=== PATIENT | female | born 1945 | race Caucasian/White ===

== ENCOUNTER → 2018-01-29 | Outpatient (CLI) | payer OTHER ==
[~2018-01-29] MED LIST: BENICAR40 MG; COZAAR 25 MG TA25 M2 PO; COZAAR 50 MG TA50 M2 PO; DITROPAN; ELIQUIS2.5 MG PO; ELIQUIS5 MG PO; ENOXAPARIN30 MG/0.1 SUBQ; IBUPROFEN 200200 M1; IBUPROFEN 200200 M1 PO; LEVSIN0.125 MG PO; LIORESAL 10 MG10 MG PO; LOPRESSOR 100 MG PO; LOPRESSOR100 M1 PO; LOPRESSOR100 MG; LOPRESSOR25 PO; LORTAB 5 MG/5001 TA1; LOTENSIN40 MG PO; NEURONTIN 400M400 M2 PO; NEURONTIN600 MG PO; NORCO 5-325 TA1 EACH PO; ONDANSETRON HCL4 M2 PO; OXYCODONE HCL 55 MG PO; PHENAZOPYRIDIN200 M2 PO; PROTONIX40 M2 PO; TRAMADOL 50 MG50 MG PO; TYLENOL325 MG PO; ZANAFLEX4 MG PO
== END ==
LOC: M.RAD 09:14
DX: Z12.31 Encounter for screening mammogram for malignant neoplasm of breast (principal)

== ENCOUNTER 2018-03-02 07:11 | Inpatient (IN) | payer OTHER ==
[2018-02-26 09:15] LABS: ABSOLUTE BASOPHILS 0.1 thou/uL (0.0-0.2); ABSOLUTE EOSINOPHILS 0.2 thou/uL (0.0-0.7); ABSOLUTE LYMPHOCYTES 2.7 thou/uL (0.8-5.3); ABSOLUTE MONOCYTES 0.6 thou/uL (0.0-1.2); ABSOLUTE NEUTROPHILS 3.7 thou/uL (1.6-8.1); BASOPHILS 1.5 %; EOSINOPHILS 2.4 %; HEMATOCRIT 43.8 % (37.0-47.0); HEMOGLOBIN 14.9 gm/dL (12.0-15.0); LYMPHOCYTES 37.6 %; MCH 29.8 pg (26.0-34.0); MCV 87.6 fL (80.0-100.0); MONOCYTES 7.7 %; MPV 8.5 fl. (7.2-11.1); NUCLEATED RBCS 0 /100WBC; PLATELET COUNT* 327 thou/uL (150-400); POLYS 50.8 %; RDW-CV 13.8 % (10.5-14.5); WBC 7.2 thou/uL (4.0-11.0)
[2018-02-26 09:23] LABS: CREATININE 0.8 mg/dL (0.6-1.3); POTASSIUM 3.3 mmol/L (3.5-5.1)
[2018-02-26 09:28] LABS: ALBUMIN 3.8 g/dL (3.4-5.0); TOTAL BILIRUBIN 0.4 mg/dL (<0.1-1.0); TOTAL PROTEIN 8.2 g/dL (6.4-8.2)
[2018-02-26 09:48] LABS: APTT 26.6 Seconds (25.0-31.3); PROTIME 9.9 Seconds (9.20-11.50)
[2018-02-26 10:19] LABS: ESR (SEDRATE) 20 mm/hr (0-30)
--- NOTE | 2018-02-26 16:37 | EKG ---
[place] [address] ELECTROCARDIOGRAM REPORT Name: BOZENA DORSEY Room: [facility]#: [id number] Admission: Attend Phys: Celia Ahmadi Discharge: Date of : 47 Report #: [id number] THIS REPORT FOR: //name// [facility] Test Date: 2018-02-26 Test Time: 09:40:28 Pat Name: BOZENA OSUNAW Department: Room: Gender: F Mine Promotor: : 1945 Requested By: Wali Coombs Order Number: [id number] Obdulia MD: Barry Bailey Measurements Intervals [place] Rate: 82 P: 41 SD: 152 QRS: 64 QRSD: 92 T: 12 QT: 372 QTc: 435 Interpretive Statements Sinus rhythm Low voltage, precordial leads Compared to ECG 05/09/2016 09:20:54 Ventricular premature complex(es) no longer present Electronically Signed On 02-26-2018 16:37:19 CDT by Barry Bailey [email or web address] <ELECTRONICALLY SIGNED> By: Barry Bailey MD, [facility] 02/26/18 1637 0940 9 Barry Bailey MD, FACC /EPI
[~2018-03-02] VITALS: Ht 170.2 cm; Wt 87.5 kg
[~2018-03-02 07:11] MED LIST changes: -COZAAR 25 MG TA25 M2 PO; -ENOXAPARIN30 MG/0.1 SUBQ; -LEVSIN0.125 MG PO; -LOPRESSOR25 PO; -NEURONTIN600 MG PO; -NORCO 5-325 TA1 EACH PO; -ONDANSETRON HCL4 M2 PO; -PHENAZOPYRIDIN200 M2 PO
[2018-03-02 08:09] VITALS: BP 134/75
--- NOTE | 2018-03-02 15:38 | OP ---
[address] [address] OPERATIVE REPORT Name: BOZENA DORSEY Room: [address] IN .R.#: [id number] Admission: 03/02/18 Attend Phys: Celia Ahmadi Discharge: Date of : 47 Report #: [id number] THIS REPORT FOR: //name// CC: Wali Mayo DICTATED BY: Shon Cannon DO DATE OF SERVICE: 03/02/2018 PREOPERATIVE DIAGNOSIS: Left knee degenerative joint disease, valgus deformity. POSTOPERATIVE DIAGNOSIS: Left knee degenerative joint disease, valgus deformity. PROCEDURE: Left total knee arthroplasty. SURGEON: Wali Coombs DO. [employer]: Shon Cannon DO and Jeffrey Clark DO. ORTHOPEDIC IMPLANTS: Hernandez [employer] Nephew Journey II posterior stabilized total knee arthroplasty. 1. Size 4 posterior stabilized femoral component. 2. A size 4 tibial baseplate. 3. A size 11 posterior stabilized polyethylene liner. 4. A size 29 oval patella. PREOPERATIVE ANTIBIOTICS: 1 gram of vancomycin. ESTIMATED BLOOD LOSS: 150 mL. ANESTHESIA: General endotracheal tube. COMPLICATIONS: None. SPECIMENS: None. DRAINS: None. CONDITION: The patient is stable to PACU. INDICATIONS FOR PROCEDURE: This 72-year-old female has been dealing with left knee pain and discomfort for quite some time. She previously underwent right total knee arthroplasty, which she had great results with and elected to proceed [place] [address] [address] OPERATIVE REPORT Name: BOZENA DORSEY Room: [place] [address] ADM IN M.R.#: [id number] Admission: 03/02/18 Attend Phys: Celia Ahmadi Discharge: Date of : 47 Report #: [id number] with left total knee arthroplasty. DESCRIPTION OF PROCEDURE: Once written and verbal consent was obtained, the patient was taken from the preoperative holding area to the operating suite, given the benefit of general anesthesia. Left lower extremity was prepared for surgery with a well-padded tourniquet, was sterilely prepped and draped in sewing machine operator paper bags manner. Timeout was performed to verify the correct operative site, the patient and procedure. Next, a standard midline incision was made over the anterior surface of the knee, carried down to the quadriceps tendon and capsule. A standard medial parapatellar arthrotomy was performed and the patella was everted laterally and an entry reamer was used in the distal femur. Our distal femoral cutting block was set to resect 10 mm off the distal femur. Next, attention was taken to the tibia and an extramedullary tibial guide was used to resect 9 mm off the medial side. After this cut was performed, the knee was taken into extension and the 10-mm spacer block was utilized and found to have good mechanical alignment. Next, attention was taken to the femur and a sizing guide was used to size the distal femur to a size 4. Our captured cutting block was used to make our distal femur and chamfer cuts. Once all bony cuts were removed, a soft tissue resection of meniscus and any other adhesive tissues were removed from the knee. It was thoroughly irrigated. Trial components were set in place, found to have good gap balance as well as alignment of the components. The knee was thoroughly irrigated. Next, utilizing the Wisam size 41 patellar reamer, the patellar surface was reamed down to a nice flat surface, measured to be a size 29. All trial components were removed from the knee. The knee was thoroughly irrigated. Posterior capsule was injected with a local cocktail. The utilized 1 bag of Palacos bone cement, the final components were impacted into place. Cement was allowed to harden. A final polyethylene liner size [address] The knee was thoroughly irrigated. Vancomycin powder was sprinkled onto the knee. The quadriceps tendon and capsule was closed with a combination of #1 Vicryl sutures as well as a barbed PDS suture. Next, the skin was closed with a 2-0 Monocryl in a running Stratafix surgical glue and a Mepilex silver dressing. The patient was awakened, taken to PACU in a stable condition. PQRS: The patient will receive Eliquis for DVT prophylaxis and will also receive vancomycin for 24 hours after surgery. <ELECTRONICALLY SIGNED> By: Wayne Sarabia DO 03/02/18 1538 1034 [id number] Coombs DO /chata
[2018-03-02 16:00] VITALS: BP 136/87
--- NOTE | 2018-03-02 16:54 | NUR ---
PATIENT ARRIVED TO UNIT AT 1520. ALERT AND ORIENTED X4. UP WITH ASSIST X1 WITH WALKER AND GAIT BELT. IV IS PATENT AND INFUSING. PAIN BEING MANAGED WITH PO PAIN MEDICATION ADMINISTERED IN THE PACU. DENIES NAUSEA. CONTINUOUS PULSE OX IN PLACE. DRESSING ON LEFT KNEE IS C/D/I. VSS ON ROOM AIR. PATIENT HAS BEEN ORIENTED TO ROOM. CALL LIGHT IS WITHIN REACH. NURSING WILL CONTINUE TO MONITOR.
--- NOTE | 2018-03-02 17:58 | NUR ---
ALERT AND ORINENTED X4. UP WITH ASSIST X1 WITH WALKER AND GAIT BELT. IV IS PATENT AND INFUSING. PAIN BEING MANAGED WITH PO PAIN MEDICATION GIVEN IN THE PACU. DENIES NAUSEA. TYLER HOSE IN PLACE BILATERALLY. ICE PACK IN PLACE ON LEFT KNEE. DRESSING IS C/D/I. CONTINUOUS PULSE OX IN PLACE. VSS ON ROOM AIR. HOURLY ROUNDS HAVE BEEN MAINTAINED SINCE ARRIVING TO UNIT. CALL LIGHT IS WITHIN REACH. NURSING WILL CONTINUE TO MONITOR.
[2018-03-02 20:00] VITALS: BP 127/95
[2018-03-03 00:14] VITALS: BP 103/58
[2018-03-03 04:20] VITALS: BP 109/59
[2018-03-03 04:28] LABS: HEMATOCRIT 32.9 % (37.0-47.0); HEMOGLOBIN 10.9 gm/dL (12.0-15.0)
--- NOTE | 2018-03-03 06:55 | NUR ---
PATIENT ALERT AND ORIENTED X 4. VITALS STABLE. PLACED ON 2L AT HS. PAIN CONTROLLED WITH PO MEDICATION. UP WITH ASSIST X 1 TO BSC. LEFT KNEE DRESSING REINFORCED. ICEPACK IN PLACE. FLUIDS INFUSING PER ORDER. HOURLY ROUNDS. BED ALARM IN USE. NURSING WILL CONTINUE TO MONITOR.
--- NOTE | 2018-03-03 09:30 | NUR ---
PATIENT CALLED TO NURSES STATION AND ASKED TO GO TO THE BATHROOM. PATIENT HAS BEEN UP TO THE COMMODE MULTIPLE TIMES. NURSE ASKED PATIENT IF SHE WOULD RATHER USE THE BEDSIDE COMMODE OR WALK TO THE BATHROOM. PATIENT CHOSE TO WALK TO THE BATHROOM, WHEN PATIENT WENT TO STAND UP OFF THE TOILET HER LEFT LEG BUCKLED AND EXTERNALLY ROTATED. PATIENT AND NURSE HEARD A POP. NURSE WAS HOLDING ONTO GAIT BELT, AND SAT PATIENT BACK ON TOILET . NURSE HAD TECH SIT WITH PATIENT WHILE A CALL WAS PUT OUT TO A oRTHO RESIDENT, RECEIVED AN ORDER FOR A STAT X-RAY. PHYSICAL THERAPY ASSISTED TO GET PATIENT BACK TO BED WITHOUT WEIGHT BEARING ON THE AFFECTED LEG. X-RAY WAS TAKEN AND THE RESULTS SHOWED A FRACTURED FEMUR. ORTHO DR., PROGRAM COORDINATOR, AND PETROLEUM REFINERY OPERATOR HAVE BEEN NOTIFIED. PATIENT REQUESTED A COPY OF HER X-RAY, CALLED [facility] TO VERIFY HOW TO GET HER THOSE RECORDS. HAD PATIENT FILL OUT AND SIGN A [facility] REQUEST FORM AND GAVE PATIENT A COPY OF THE X-RAY REPORT AND PICTURE OF FRACTURE.
[2018-03-03 16:37] VITALS: BP 124/67
--- NOTE | 2018-03-03 20:15 | NUR ---
ALERT AND ORIENTED X4. BEDREST. NON WEIGHT BEARING STATUS MAINTAINED SINCE RECIEVING ORDER. IV IS PATENT AND SALINE LOCKED. PAIN BEING MANAGED WITH IV AND PO PAIN MEDICATION. NAUSEA BEING MANAGED WITH IV NAUSEA MEDICATION. MEPILEX DRESSING IN PLACE ON LEFT KNEE MODERATELY SATURATED. VSS ON 2L O2. CONTINUOUS PULSE OX IN PLACE THROUGHOUT SHIFT. CALL LIGHT IS WITHIN REACH. NURSING WILL CONTINUE TO MONITOR.
[2018-03-03 21:00] VITALS: BP 94/42
[2018-03-04 00:53] VITALS: BP 121/59
[2018-03-04 04:58] LABS: HEMATOCRIT 32.4 % (37.0-47.0); HEMOGLOBIN 10.7 gm/dL (12.0-15.0); MCH 29.8 pg (26.0-34.0); MCV 90.3 fL (80.0-100.0); MPV 8.4 fl. (7.2-11.1); RBC 3.58 mil/uL (4.20-5.00); RDW-CV 14.1 % (10.5-14.5); WBC 13.9 thou/uL (4.0-11.0)
[2018-03-04 05:01] LABS: CALCIUM 8.4 mg/dL (8.5-10.1); CREATININE 0.7 mg/dL (0.6-1.3); MAGNESIUM 1.6 mg/dL (1.8-2.4); POTASSIUM 3.9 mmol/L (3.5-5.1)
[2018-03-04 05:08] VITALS: BP 122/46
--- NOTE | 2018-03-04 07:43 | NUR ---
PATIENT ALERT AND ORIENTED X 4. VITALS STABLE. ON 2L OF OXYGEN. PO AND IV PAIN MEDICATION GIVEN. IS ENCOURAGED. BEDREST. TIWARI PLACED THIS MORNING DUE TO IMMOBILIZATION. DROWSY WITH PAIN MEDS. HOURLY ROUNDS. BED ALARM IN USE. NURSING WILL CONTINUE TO MONITOR.
[2018-03-04 09:00] VITALS: BP 106/41
--- NOTE | 2018-03-04 11:58 | NUR ---
SPOKE WITH PT. SHE WAS DROWSY FROM PAIN MEDICATION. HAD TOTAL R KNEE REPLACEMENT ON 03/02. STOOD UP OFF TOILET YESTERDAY AND SUSTAINED FX FEMUR ON R. SHE LIVES WITH HER AT HOME. HE CAN'T HELP HER AT HOME. DAUGHTER IS SUPPORTIVE. SHE HAS A FWW,STOOL RISER AND BATH BENCH AT HOME BUT HAS'T HAD TO USE SINCE LAST YEAR. SHE WENT TO [facility] FOR SKILLED STAY AFTER TOTAL KNEE LAST YEAR. ALSO HAS A HX OF CHCS. WILL DISCUSS DISCHARGE PLANNING AFTER ORIF PLANNED FOR 03/05.
[2018-03-04 16:38] VITALS: BP 104/44
--- NOTE | 2018-03-04 17:39 | NUR ---
ASSUMED CARE OF PATIENT AFTER MORNING REPORT AT APPROX 0730. ALERT AND OREINTED X4. ASSESSMENT COMPLETED AND CHARTED. VSS ON 2 LITERS 02. NO COMPLAINTS OF NAUSEA OR SOA. PAIN HAS BEEN MANAGED WITH MEDICATIONS. ANTIBIOTICS INFUSED ORDERED. IV SALINE LOCKED, REMIANS PATENT WITH FLUSHES. TIWARI IN PLACE, PATENT AND DRAINING DEPENDENTLY, MINIMAL DRAINAGE THIS SHIFT. PATIENTS IV PAIN MEDICATION MAKES PATIENT VERY DROWSY, ENCOURAGED PATIENT TO STAY AWAKE AND EAT MEALS TO PREVENT NAUSEA TODAY. CALLED ORHTO TO ADD ORAL PAIN MEDICATION TO REDUCE USE OF IV OPTION. PATEINT RESTING COMFORTABLY IN BED AT THIS TIME. HOURLY ROUNDS MAINTAINED, CALL LIGHT WITHIN REACH, NURSING WILL CONTINUE TO MONITOR.
[2018-03-04 20:25] VITALS: BP 106/43
[2018-03-05] VITALS (15 sets, daily range): BP systolic 103–135; BP diastolic 41–60
[2018-03-05 05:26] LABS: ABSOLUTE BASOPHILS 0.1 thou/uL (0.0-0.2); ABSOLUTE EOSINOPHILS 0.2 thou/uL (0.0-0.7); ABSOLUTE LYMPHOCYTES 2.4 thou/uL (0.8-5.3); ABSOLUTE MONOCYTES 1.3 thou/uL (0.0-1.2); ABSOLUTE NEUTROPHILS 7.5 thou/uL (1.6-8.1); BASOPHILS 0.8 %; EOSINOPHILS 1.6 %; HEMATOCRIT 26.5 % (37.0-47.0); LYMPHOCYTES 21.1 %; MCHC 33.9 g/dL (28.0-37.0); MCV 88.7 fL (80.0-100.0); MONOCYTES 11.3 %; MPV 8.2 fl. (7.2-11.1); NUCLEATED RBCS 0 /100WBC; PLATELET COUNT* 225 thou/uL (150-400); POLYS 65.2 %; RBC 2.99 mil/uL (4.20-5.00); RDW-CV 13.7 % (10.5-14.5); WBC 11.5 thou/uL (4.0-11.0)
[2018-03-05 05:45] LABS: ALBUMIN 2.4 g/dL (3.4-5.0); CALCIUM 8.6 mg/dL (8.5-10.1); CREATININE 0.9 mg/dL (0.6-1.3); POTASSIUM 4.1 mmol/L (3.5-5.1); TOTAL BILIRUBIN 0.5 mg/dL (<0.1-1.0); TOTAL PROTEIN 6.2 g/dL (6.4-8.2)
--- NOTE | 2018-03-05 06:58 | NUR ---
PATIENT ALERT AND ORIENTED X 4, DROWSY WITH PAIN MEDS.CONTINUED BEDREST. 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 LOW GRADE FEVER OVERNIGHT. ORTHO RESIDENT AWARE. IS ENCOURAGED. TIWARI TO DEPENDENT DRAINAGE. OFF UNIT AT 0640 FOR SURGERY. HOURLY ROUNDS. BED ALARM IN USE. NURSING WILL CONTINUE TO MONITOR.
[2018-03-05 11:51] LABS: HEMATOCRIT 22.3 % (37.0-47.0); HEMOGLOBIN 7.4 gm/dL (12.0-15.0)
--- NOTE | 2018-03-05 14:13 | NUR ---
PT TRANSFERED TO ICU 7 VIA BED FROM PACU AT 1330. PT IS ALERT AND CONFUSED. VSS. PRESSERS RUNNING AT THIS TIME. PICC LINE TO BE PLACED AT THE BEDSIDE. BLOOD TRANSFUSION PENDING AT THIS TIME WELL. PAIN 10/10 UPON TRANSFER TO ICU BED. WILL CONTINUE TO MONITOR.
--- NOTE | 2018-03-05 14:27 | OP ---
[facility] [address] [place] [address] OPERATIVE REPORT Name: BOZENA DORSEY Room: [address] IN ..#: [id number] Admission: 03/02/18 Attend Phys: Celia Ahmadi Discharge: Date of : 47 Report #: [id number] THIS REPORT FOR: //name// CC: Wali Mayo DICTATED BY: Shon Cannon DO DATE OF SERVICE: 03/05/2018 PREOPERATIVE DIAGNOSIS: Closed left femoral shaft fracture with prior total knee arthroplasty. POSTOPERATIVE DIAGNOSIS: Closed left femoral shaft fracture with prior total knee arthroplasty. PROCEDURE: Open reduction and internal fixation of left femoral shaft fracture. ORTHOPEDIC IMPLANTS: Synthes lateral locking plate, 16 holes. SURGEON: Wayne Sarabia DO. ASSISTANTS: Shon Cannon DO and . ANESTHESIA: General ET tube. ESTIMATED BLOOD LOSS: 250 mL. SPECIMENS: None. COMPLICATIONS: None. DRAINS: None. CONDITION OF THE PATIENT: Stable to PACU. INDICATIONS FOR PROCEDURE: This 72-year-old female, previously underwent left total knee arthroplasty and during her inpatient stay, the patient had a fall or felt a pop in her left femur and from that point, was unable to bear weight. Radiographs were obtained. The patient was found to have a spiral oblique femoral shaft fracture of her left femur. She was made bed rest and elected for operative intervention. DESCRIPTION OF PROCEDURE: Once written and verbal was consent was obtained, the patient was taken from the preoperative holding area to the operating suite and [address] [address] OPERATIVE REPORT Name: BOZENA DORSEY Room: [address] IN .R.#: [id number] Admission: 03/02/18 Attend Phys: Celia Ahmadi Discharge: Date of : 47 Report #: [id number] was given the benefit of general anesthesia and the left lower extremity was prepared for surgery. It was sterilely prepped and draped with a bump under the left hip as well as bone foam utilized for positioning. A standard lateral incision was made over the left femur. It was carried down through the subcutaneous tissue through the IT band and the vastus lateralis was elevated posteriorly and the fracture was appreciated. There was not found any cortical defect due to prior total knee arthroplasty. There was good interdigitation of all aspects of the femur. The fracture was thoroughly irrigated and fracture hematoma removed. Reduction was performed with longitudinal traction and bone clamps. Three 4-5 interfrag screws were placed from A to P direction, holding the fracture reduction. Next, we utilized Synthes lateral locking plate, 16 hole to expand the fracture. This was fixated to bone utilizing distal locking screws as well as proximal cortical screws. Was found to have anatomic reduction of the fracture. C-arm was utilized throughout the case. Wound was thoroughly irrigated. The IT band was closed with a #1 Vicryl suture and subcutaneous tissue was closed with 2-0 Monocryl suture and miguel. A Mepilex dressing and Prevena dressing were placed over the incisions. A soft roll Loc bandage was applied over the dressings. Physician-directed fluoroscopy greater than 1 hour. <ELECTRONICALLY SIGNED> By: Wayne Sarabia DO 03/05/18 1427 1015 [id number] Sarabia DO /nt
--- NOTE | 2018-03-05 15:03 | NUR ---
CONSULTED TO PLACE PICC FOR POST OP PT TRANSFERING TO ICU ON PRESSORS AND ANTIBIOTIC. CONSENT NOTED. RIGHT UPPER ARM ASSESSED AND RIGHT BASILIC IDENTIFIED AND NOTED TO BE WIDLEY PATENT. DUAL LUMAN PICC PLACED WITH OUT DIFFICULTY PER HOSPITAL POLICY. PICC TRIMMED AT 43CM AND ADVANCED TO 0CM EXTERNAL. TIP CONFIRMED WITH SHERLOCK 3CG. LINE SECURED AND RELEASED FOR USE TO PRIMARY NURSING.
[2018-03-05 16:40] LABS: URINE BILIRUBIN NEGATIVE (Negative); URINE BLOOD 1+ (Negative); URINE CLARITY CLEAR; URINE COLOR YELLOW; URINE GLUCOSE-RANDOM NEGATIVE (Negative); URINE KETONES TRACE (Negative); URINE LEUKOCYTES-REFLEX TRACE (Negative); URINE NITRITE-REFLEX NEGATIVE (Negative); URINE PROTEIN TRACE (Negative); URINE SPECIFIC GRAVITY >= 1.030 (1.005-1.030); URINE UROBILINOGEN 0.2 E.U./dl (0.2-1.0)
[2018-03-05 16:50] LABS: BACTERIA-REFLEX None Seen /HPF (None Seen); SQUAMOUS 0-3 Few /LPF (0-3); URINE WBC-REFLEX 6-15 Few /HPF (0-5)
[2018-03-05 16:51] LABS: CASTS None Seen /LPF (None Seen); CRYSTALS None Seen /LPF (None Seen); URINE RBC 3-10 Few /HPF (0-2)
--- NOTE | 2018-03-05 16:55 | NUR ---
PT'S FEVER WENT FROM 99.6 TO 102.6. PRN HYDROCODONE GIVEN FOR FEVER AND PAIN. NO OTHER NOTED BLOOD TRANSFUSION REACTIONS OCCURING. WILL CONTINUE TO MONITOR.
--- NOTE | 2018-03-05 19:20 | NUR ---
PT ALERT AND ORIENTED X4 AT THIS TIME. PAIN RATED 9.5/10 IN LUE. NEOSYNEPHERINE IS OFF AT THIS TIME. BP 114/47. FEVER IS BETTER AFTER HYDROCODONE AND IS CURRENTLY 101.4. PT ONLY ATE 1 LEMON ICE FOR SUPPER AND TOLERATED IT WITHOUT DIFFICULTY. NO NAUSEA OR VOMITTING. RIGHT UPPER ARM PICC PLACED AND IS FUNCTIONING WELL AND IS SALINE LOCKED AT THIS TIME. NO OTHER COMPLAINTS AT THIS TIME.
[2018-03-05 20:16] LABS: HEMOGLOBIN 7.5 gm/dL (12.0-15.0)
[2018-03-06] VITALS (16 sets, daily range): BP systolic 93–142; BP diastolic 35–60
--- NOTE | 2018-03-06 03:46 | NUR ---
ASSUMED CARE OF PATIENT AT 1900. VSS, REMAINS FEBRILE. TREATED WITH MEDS PER EMAR. LONG DISCUSSION ABOUT PAIN MANAGEMENT. AT THIS TIME ORAL MEDS ARE NOT EFFECTIVE PER PATIENT, IV PAIN MEDS GIVEN PER EMAR. ABLE TO REST OFF AND ON. OFFERED BATH, DECLINED THIS SHIFT. STATED PERHAPS IN THE DAY. FAMILY AT BEDSIDE BRIEFLY. UPDATED POC AND GOALS. REMAINS ON 2L WITH O2 SATS GREATER THAN 98%. WILL CONTINUE TO ENCOURAGE COUGH AND DEEP BREATH AND TURNS TO INCREASE COMFORT.
[2018-03-06 05:58] LABS: ABSOLUTE BASOPHILS 0.1 thou/uL (0.0-0.2); ABSOLUTE LYMPHOCYTES 1.2 thou/uL (0.8-5.3); ABSOLUTE MONOCYTES 1.4 thou/uL (0.0-1.2); ABSOLUTE NEUTROPHILS 7.6 thou/uL (1.6-8.1); BASOPHILS 0.6 %; EOSINOPHILS 0.2 %; HEMOGLOBIN 7.3 gm/dL (12.0-15.0); MCH 30.4 pg (26.0-34.0); MCHC 34.7 g/dL (28.0-37.0); MCV 87.7 fL (80.0-100.0); MONOCYTES 13.4 %; MPV 8.1 fl. (7.2-11.1); NUCLEATED RBCS 0 /100WBC; PLATELET COUNT* 185 thou/uL (150-400); POLYS 73.8 %; WBC 10.3 thou/uL (4.0-11.0)
[2018-03-06 06:12] LABS: ALBUMIN 1.9 g/dL (3.4-5.0); CALCIUM 7.9 mg/dL (8.5-10.1); CREATININE 0.7 mg/dL (0.6-1.3); POTASSIUM 3.9 mmol/L (3.5-5.1); TOTAL BILIRUBIN 0.7 mg/dL (<0.1-1.0); TOTAL PROTEIN 5.3 g/dL (6.4-8.2)
[2018-03-06 06:17] LABS: PREALBUMIN 9.9 mg/dL (18.0-35.7)
--- NOTE | 2018-03-06 10:04 | NUR ---
OT HERE TO PT. PT STATES THAT THE DR TOLD HER NOT TO HAVE ANY ACTIVITY. DR'S NOTE SAYS PT NON WEIGHT BEARING. CALLED ORTHO AND PT TO HAVE PT/OT AND IS NON WEIGHT BEARING ON LEFT LOWER EXTREMEITY. RELAYED MESSAGE TO PATIENT. PT SAYS "OKAY I FEEL MORE COMFORTABLE DOING THERAPY". PT IS A/O X' S 4 . FORGETFUL, ANXIOUS. PT REPORTS FEELING HUNGRY. REGULAR DIET ORDERED. PT C/O OF PAIN 6/10 IN LEFT LEG. PRN OXY GIVEN AND PT RATES PAIN 3/10 WITH MOVEMENT AND 0/10 WITHOUT MOVEMENT. PT MADE MED/SURG STATUS. PT AND SPOUSE UPDATED ON THIS. SAYS HE IS UNSURE IF HE WANT'S PT TO MOVE OUT OF ICU. HE STATES "THE DR SAID THIS IS THE BEST PLACE SHE CAN BE". DISCUSSED PLAN OF CARE AND HOW PT DOING. WHEN PT TOLD ABOUT POTENTIAL ROOM CHANGE PT STATED, "OH GOOD".
--- NOTE | 2018-03-06 12:34 | CON ---
[address] [address] CONSULTATION Name: BOZENA DORSEY Room: [address] IN M.R.#: [id number] Admission: 03/02/18 Attend Phys: Celia Ahmadi Discharge: Date of : 47 Report #: [id number] THIS REPORT FOR: //name// CC: Wali Mayo DATE OF SERVICE: 03/05/2018 ATTENDING PHYSICIAN: Dr. Mayo. REASON FOR EVALUATION: Nosocomial fevers. HISTORY OF PRESENT ILLNESS: Chart reviewed, patient examined. This is a 72-year-old woman with history of transverse myelitis and hypertension. There is a history of degenerative joint disease, underwent left total knee arthroplasty on 03/02/2018. Postop course was complicated by an injury resulting in a fracture of the distal femur. Today underwent which is 03/05/2018, open reduction and internal fixation of the femur fracture with placement of several plates as well as screws. It is notable over the course of the last 24 hours, had developed some fevers, T-max of 101.2, more recently 100.5. She is seen postop. She is quite encephalopathic at this point secondary to the anesthetic. She complains of significant pain associated with it at the operative site. As part of the preop workup, chest x-ray done yesterday showed no acute process. Blood cultures were collected and are sterile thus far. CRP elevated at ____. Liver functions were otherwise unremarkable. She was empirically dosed with antibiotics including vancomycin and levofloxacin. ALLERGIES: LISTED TO PENICILLIN, SULFA, CODEINE. CURRENT MEDICATIONS: Include enoxaparin, oxycodone, levofloxacin, baclofen, metoprolol, losartan, pantoprazole, gabapentin. PAST MEDICAL HISTORY: As described above; transverse myelitis, history of hypertension, peripheral neuropathy, reflux, right total knee arthroplasty, right total hip arthroplasty and more recently a left total knee arthroplasty. SOCIAL HISTORY: She is a nonsmoker, no ethanol. FAMILY HISTORY: Noncontributory. REVIEW OF SYSTEMS: Not obtainable. PHYSICAL EXAMINATION: GENERAL: She is in moderate distress secondary to the [place] [address] CONSULTATION Name: BOZENA DORSEY Room: [address]#: [id number] Admission: 03/02/18 Attend Phys: Ceila Ahmadi Discharge: Date of : 47 Report #: [id number] She is shaking. VITAL SIGNS: Recent recorded temperature 100.5, pulse 99, respirations 18, blood pressure 115/47. SKIN: Warm. No rashes. HEENT: Nasal cannula oxygen in place. NECK: Supple. LUNGS: Diminished breath sounds. HEART: Tachycardic. I do not appreciate a murmur. ABDOMEN: Soft. There are no peritoneal signs. GENITOURINARY AND RECTAL: Deferred. LABORATORY DATA: Hemoglobin recently 7.4, hematocrit 22.3. CRP of ____. Electrolytes: Sodium 131, potassium 4.1, chloride 98, bicarbonate is 27, BUN and creatinine 22 and 0.9, glucose of 117. LFTs unremarkable. Albumin 2.4, total protein 6.2. Estimated GFR of 62. White count was mildly elevated at 11.5. Chest x-ray was otherwise unremarkable. Lactic acid was 0.9 yesterday. ASSESSMENT AND PLAN: Nosocomial fevers in a patient who had a recent femur fracture. This is some evidence at this point of pyogenic infection. She has been started on empiric therapy with quinolone due to hypersensitivities. We will go ahead and check a urinalysis. There is concern about possible urinary tract infection. Certainly at risk for pneumonitis as well in spite of the negative chest x-ray, we will repeat it in the a.m. Incentive spirometry when she awakens due to her limited mobility at risk for other noninfectious causes including atelectasis, constipation, possible DVT as well. We will monitor expectantly. <ELECTRONICALLY SIGNED> By: Krishan Riley MD 03/06/18 1234 1424 [id number] Riley MD /nt
--- NOTE | 2018-03-06 14:29 | NUR ---
DURING THERAPY PT C/O OF PAIN. OFFERED PT PAIN MEDICATION AND PT STATED, "I DON'T WANT ANY MORE PAIN MEDICATION"
--- NOTE | 2018-03-06 14:36 | NUR ---
ORTHO ASKED IF PT TO HAVE BLOOD TRANSFUSION TODAY, CONCERN FOR SIGNIFICANT DROP WITHIN PAST FEW DAYS. CONCERN IS IF PT STARTS BECOMING SYMPTOMATIC WITH HYPOTENSION OR TACHYCARDIA. SYSTOLIC BP OF 140'S AND HEART RATE IN 80'S. CALLED DR COLE AND RELAYED CONCERNS FROM ORTHO. RECEIVED ORDER TO CHECK H&H AND TRANFUSE IF H&H LESS THAN LAB EARLIER TODAY. PT NOTED TO HAVE MAG OF 1.6. TWO DAYS AGO. ASKED DR TO REPEAT LABS AND PLACE PT ON ELECTROLYTE PROTOCOL. ORDERS RECEIVED FOR LABS AND ELECTROLYTE PROTOCOL.
[2018-03-06 16:43] LABS: HEMATOCRIT 21.4 % (37.0-47.0); HEMOGLOBIN 7.2 gm/dL (12.0-15.0)
--- NOTE | 2018-03-06 18:37 | NUR ---
PATIENT ARRIVED TO THE UNIT AT 1825. ALERT AND ORIENTED. VSS ON ROOM AIR. WOUND VAC IN PLACE AND WORKING PROPERLY. CALL LIGHT PLACED IN REACH, NURSING WILL CONTINUE TO MONITOR.
--- NOTE | 2018-03-06 18:44 | NUR ---
HEMOGLOBIN 7.2. PER ORDERS BLOOD TRANSFUSION ORDERED. PT HAS POOR APPETITE. PT EATING ABOUT 5% OF MEALS. PT ENCOURAGED TO EAT. PT C/O OF NAUSEA. EXPLAINED TO PT THAT WITH TAKING NARCOTICS IT WILL HELP TO EAT TO REDUCE NAUSEA.
--- NOTE | 2018-03-06 19:06 | NUR ---
DTR TOSHA CALLED TO NOTIFY PT HAS BEEN MOVED TO ROOM 102. VOICEMAIL LEFT TO CALL BACK FOR AN UPDATE AND NUMBER TO JOINT AND SPINE LEFT ON VOICEMAIL.
[2018-03-07] VITALS: BP 94/38
[2018-03-07 04:15] VITALS: BP 104/49
[2018-03-07 05:36] LABS: ABSOLUTE BASOPHILS 0.1 thou/uL (0.0-0.2); ABSOLUTE EOSINOPHILS 0.1 thou/uL (0.0-0.7); ABSOLUTE LYMPHOCYTES 2.1 thou/uL (0.8-5.3); ABSOLUTE MONOCYTES 1.5 thou/uL (0.0-1.2); ABSOLUTE NEUTROPHILS 9.5 thou/uL (1.6-8.1); BASOPHILS 0.4 %; EOSINOPHILS 0.6 %; HEMATOCRIT 23.1 % (37.0-47.0); HEMOGLOBIN 7.9 gm/dL (12.0-15.0); LYMPHOCYTES 15.8 %; MCHC 34.1 g/dL (28.0-37.0); MCV 87.9 fL (80.0-100.0); MONOCYTES 11.4 %; MPV 8.3 fl. (7.2-11.1); NUCLEATED RBCS 0 /100WBC; PLATELET COUNT* 212 thou/uL (150-400); POLYS 71.8 %; RBC 2.63 mil/uL (4.20-5.00); RDW-CV 13.7 % (10.5-14.5); WBC 13.2 thou/uL (4.0-11.0)
[2018-03-07 06:00] LABS: ALBUMIN 1.7 g/dL (3.4-5.0); CALCIUM 8.2 mg/dL (8.5-10.1); CREATININE 0.7 mg/dL (0.6-1.3); POTASSIUM 3.8 mmol/L (3.5-5.1); TOTAL BILIRUBIN 0.9 mg/dL (<0.1-1.0); TOTAL PROTEIN 5.4 g/dL (6.4-8.2)
--- NOTE | 2018-03-07 07:57 | NUR ---
Alert and oriented x 4. She did start shift very drowsy. Temp was elevated and roomair sat 82-85%. started on 3L n/c and increased to 95%. I did report high temp to Dr Oliver because 1 unit of blood was ordered and also low O2 sat on roomair. Dr Oliver did say to try not to give her IV dilaudid and just give oral pain meds. He said to start the unit of blood when temp decreased. Blood was started at 2300. Vitals did improve with the unit. Polarcare started last evening. New order to start CPM this am, reported to dayshift. LLE acewrap dressing dry and intact with provena wound vac. She has had oxy IR x 2 this shift. No adverse reaction to unit of blood. She has slept intermittenly.
[2018-03-07] MEDS ORDERED: LEVSIN0.125 MG PO (10:49)
[2018-03-07] MEDS ORDERED: PHENAZOPYRIDIN200 M2 PO (10:50)
[2018-03-07] MEDS ORDERED: NORCO 5-325 TA1 EACH PO (10:50)
[2018-03-07 16:00] VITALS: BP 142/56
--- NOTE | 2018-03-07 19:48 | NUR ---
LATE ENTRY: PATIENT REFUSED TO BE TURNED AT TIMES. DAY SHIFT NURSE REPORTED THAT PATIENT HAD BEEN REFUSING TURNS DURING THE DAY. NURSE ALSO REPORTED THAT PATIENT HAD PURPLE AREA THAT WAS STARTING TO FORM ON BOTTOM AREA AND SLIGHT BREAK DOWN STARTING. NURSING TO WITH PLAN OF CARE AND TO MONITOR PATIENT.
[2018-03-07 20:00] VITALS: BP 115/52
--- NOTE | 2018-03-07 20:12 | NUR ---
ALERT AND ORIENTED X4. IJ IS PATENT AND SALINE LOCKED. PAIN BEING MANAGED WITH PO PAIN MEDICATION. NAUSEA MANAGED WITH IV NAUSEA MEDICATION. ATTENDED PHYSICAL THERAPY AND OCCUPATIONAL THERAPY THIS AM. PATIENT SAT UP TO EDGE OF BED BUT WAS UNABLE TO STAND. CPM IN USE X2 THIS SHIFT 0-30. IS ENCOURAGED. TYLENOL GIVEN FOR FEVER THIS AFTERNOON. VSS ON ROOM AIR. HOURLY ROUNDS HAVE BEEN MAINTAINED THROUGHOUT SHIFT. CALL LIGHT IS WITHIN REACH. NURSING WILL CONTINUE TO MONITOR.
[2018-03-08 00:51] VITALS: BP 114/59
[2018-03-08 04:11] VITALS: BP 118/58
[2018-03-08 06:09] LABS: ABSOLUTE EOSINOPHILS 0.1 thou/uL (0.0-0.7); ABSOLUTE LYMPHOCYTES 1.8 thou/uL (0.8-5.3); ABSOLUTE MONOCYTES 1.1 thou/uL (0.0-1.2); ABSOLUTE NEUTROPHILS 7.3 thou/uL (1.6-8.1); BASOPHILS 0.4 %; HEMATOCRIT 22.4 % (37.0-47.0); HEMOGLOBIN 7.7 gm/dL (12.0-15.0); LYMPHOCYTES 17.8 %; MCH 30.1 pg (26.0-34.0); MCHC 34.4 g/dL (28.0-37.0); MCV 87.4 fL (80.0-100.0); MONOCYTES 10.2 %; MPV 7.7 fl. (7.2-11.1); NUCLEATED RBCS 0 /100WBC; PLATELET COUNT* 254 thou/uL (150-400); POLYS 70.6 %; RBC 2.57 mil/uL (4.20-5.00); RDW-CV 13.6 % (10.5-14.5); WBC 10.4 thou/uL (4.0-11.0)
[2018-03-08 06:17] LABS: ALBUMIN 1.5 g/dL (3.4-5.0); CREATININE 0.7 mg/dL (0.6-1.3); POTASSIUM 3.5 mmol/L (3.5-5.1); TOTAL BILIRUBIN 0.7 mg/dL (<0.1-1.0); TOTAL PROTEIN 5.4 g/dL (6.4-8.2)
[2018-03-08 06:37] LABS: PREALBUMIN 6.8 mg/dL (18.0-35.7)
[2018-03-08 07:45] VITALS: BP 118/55
--- NOTE | 2018-03-08 09:56 | NUR ---
PATIENT HAS BEEN RESTLESS OFF AND ON DURING THE NIGHT. VSS ON 2L 02 VIA NASAL CANNULA. PAIN CONTROLLED WITH ORAL PAIN MEDICATIONS AND CHARTED. MEDICATION GIVEN TO HELP WITH C/O MILD NAUSEA. PATIENT TURNED EVERY 2HRS AND NEEDED. PATIENT TOLERATED CPM WELL. ASSESSMENT CHARTED. DRESSING TO LEFT LEG IS C/D/I, WOUND VAC IN PLACE WITH SMALL AMOUNT OF SEROSANGUINOUS DRAINAGE. POLAR CARE, AND SCD'S IN PLACE. PATIENT REMAINS IN CONTACT ISOLATION AT THIS TIME. PICC LINE TO RIGHT UPPER ARM-SL. IV IN RIGHT FOREARM-SL. IV IN LEFT FOREARM-SL. PATIENT INSTRUCTED TO USE CALL LIGHT WHEN NEEDING ASSISTANCE. HOURLY ROUNDS MADE. WILL CONTINUE WITH PLAN OF CARE AND NURSING TO MONITOR.
[2018-03-08 16:25] VITALS: BP 101/50
--- NOTE | 2018-03-08 17:11 | NUR ---
0745-PT RESTING AT THIS TIME WITH C/O PAIN BUT STATES SHE CAN WAIT FOR MORE PAIN MEDICATION. 1000-PT REFUSED AM BP MEDICATIONS. PT NOT AGREEABLE TO TURNS EVERY 2 HOURS. PT TRYING TO HAVE BM THIS SHIFT, BM MEDS GIVEN. PT TO HAVE VANC TROUGH 03/09/[address] COLE WANTED PT TO HAVE VENOUS DOPPLER OF LOWER EXTREMITIES. ORTHO CALLED TO SEE IF WE CAN REMOVE DRESSING FOR DOPPLER. 1200-ORTHO STATED THAT BULKY DRESSING CAN BE REMOVED BUT WOUND VAC DRESSING AND SURGICAL DRESSING MAINTAINED AT THIS TIME. DOPPLER WAS NEGATIVE FOR BLOOD CLOT AT THIS TIME. 1400-PHOTOS TAKEN OF WOUND ON PT COCCYX, PHYSICIAN NOTIFIED REGARDING WOUND AND WOUND RN CONSULTED. PT GIVEN MAG CITRATE. 1545-DR HERRING ON UNIT AND HE STATED HE THOUGHT THE PT HAD A WOUND DURING HER FEMUR SURGERY THAT MIGHT HAVE BEEN NOTED ON SURGICAL REPORT. DR HERRING GAVE VERBAL ORDER TO USE A FOAM AG DRESSING TO WOUND ON COCCYX UNTIL WOUND RN SEES PT. PT VSS STABLE THIS SHIFT. PT HAVING STAFF ASSIST WITH ANY AND ALL MOVEMENT OF LLE AT THIS TIME. PT REFUSING BATH THIS SHIFT DUE TO INCREASED PAIN. PT EDUCATED ABOUT TURNS AND WOUND CARE MULTIPLE TIMES THIS SHIFT WELL PAIN MANAGEMENT. PT VERBALIZES UNDERSTANDING WITH THESE TOPICS, HOWEVER SHE CONTINUES TO REFUSE TURNS. WAITING FOR DRESSING FOR COCCYX FROM STOPPER SETTER. PT HAS C/O NAUSEA THIS SHIFT THAT IS MANAGED WITH ZOFRAN. WOUND VAC USE WITH NO CONCERNS THIS SHIFT. WILL CONTINUE TO ASSESS AND MONITOR
[2018-03-08 17:23] VITALS: BP 136/71
[2018-03-08 20:00] VITALS: BP 127/61
[2018-03-09 03:11] LABS: HEMATOCRIT 23.1 % (37.0-47.0); HEMOGLOBIN 7.9 gm/dL (12.0-15.0); MCH 29.9 pg (26.0-34.0); MCHC 34.2 g/dL (28.0-37.0); MCV 87.6 fL (80.0-100.0); MPV 8.1 fl. (7.2-11.1); NUCLEATED RBCS 0 /100WBC; PLATELET COUNT* 241 thou/uL (150-400); RBC 2.64 mil/uL (4.20-5.00); RDW-CV 13.7 % (10.5-14.5); WBC 11.7 thou/uL (4.0-11.0)
[2018-03-09 03:16] LABS: CALCIUM 7.7 mg/dL (8.5-10.1); CREATININE 0.6 mg/dL (0.6-1.3); POTASSIUM 3.8 mmol/L (3.5-5.1)
--- NOTE | 2018-03-09 04:17 | NUR ---
PATIENT REMAINED ALERT AND ORIENTED X'S 4. VITAL SIGNS AND SPO2 STABLE. IV CLEAN, FLUSHING. PICC LINE FLUSHING. PAIN CONTROLLED WITH PAIN MEDS. TURNED PATIENT Q.2. SHE REFUSED WEDGES, WOULD ONLY USE PILLOWS. RIGHT LEG SCD'S IN PLACE. LEGS ELEVATED. TOLERATED DIET, NO NAUSEA AMD VOMITING. HAD BOUTS OF DIARRHEA ALL NIGHT, HELD STOOL SOFTNER. BARRIER CREAM PLACED ON COCCYX. TIWARI PATENT, INTACT. GAVE BACLOFEN FOR TREMORS, TREMORS SUBSIDED. COMPLETED HOURLY ROUNDING. CALL LIGHT JAZZ MAURO. WILL CONTINUE TO MONITOR.
[2018-03-09 06:14] LABS: ABSOLUTE MONOCYTES 1.1 thou/uL (0.0-1.2); ABSOLUTE NEUTROPHILS 7.8 thou/uL (1.6-8.1); METAMYELOCYTES 1 %
[2018-03-09 06:21] LABS: CLUMPED PLTS MODERATE; PLATELET ESTIMATE ADEQUATE
[2018-03-09 06:23] LABS: LARGE PLATELETS FEW
[2018-03-09 06:27] LABS: ATYPICAL LYMPHS 10 %
[2018-03-09 06:28] LABS: HYPOCHROMASIA 3+
--- NOTE | 2018-03-09 11:32 | NUR ---
Nutrition: Pt assessed for pressure ulcer. Per RN note, there is also other breakdown noticed. Albumin 1.5, prealbumin 6.9, BG is ok. Tolerating Regular diet. Pt has diarrhea. Admitted for Lt TKR. Pressure ulcer on coccyx. Severely depleted visceral protein stores. RD ordered Saurabh b.i.d. Increased nutrient needs R/T wound healing AEB chart review, labs above. GOALS: Saurabh b.i.d., >75% of meals consumed, RECOMMEND MVI USE. Mild risk at this time.
--- NOTE | 2018-03-09 15:26 | NUR ---
WOUND CARE NOTE: CONSULT RECEIVED FOR WOUND ON COCCYX. PATIENT PRESENTS WITH WHAT APPEARS TO BE A DEEP TISSUE INJURY TO HER SACROCOCCYGEAL REGION, MORE ON THE RIGHT THAN THE LEFT. AREA IS FIRM TO PALPATION. PURPLE DISCOLORATION WITH RUPTURED BLISTERS. WOUND MEASURES 6X7X0.1. APPLIED BARRIER OINTMENT EDUCATED PATIENT ON OFFLOADING TO PROMOTE HEALING, DEMONSTRATED APPROPRIATE WEDGE PLACEMENT WOUND FINDINGS LIMITING TIME WITH HEAD OF BED RAISED PATIENT COMMUNICATED UNDERSTANDING TO ALL RECOMMEND LIMIT TIME IN CHAIR OR WITH HOB >30 DEGREES WAFFLE CUSHION WHEN IN CHAIR ENCOURAGE GOOD NUTRTION/HYDRATION TURN Q2 HOURS-KEEP OFF WOUND BARRIER OINTMENT BID AND PRN
[2018-03-09 16:00] VITALS: BP 144/58
--- NOTE | 2018-03-09 20:18 | NUR ---
PT ALERT AND ORIENTED X 4. REPORTED PAIN AT 2/10. DENEIED NAUSEA. PT TO RADIOLOGY BY BED AT 915 FOR XRAY TO SACRUM/COCCYX. RETURNED AT 1010. PT C/O NAUSEA AND MANAGED WITH IV ZOFRAN. PT RECEIVED PO MEDS OF OXY IR AND HYDROCODONE FOR PAIN CONTROL. BED CHANGED TO AIR FLOW MATTRESS SPECIALTY BED @ 1100. OXYGEN @ 2L/NC. TIWARI CATHETER IN PLACE. PT USED CPM X 1 THIS AFTERNOON. PARTICIPATED IN THERAPIES. PT TURNED AND REPOSITIONED Q 2. HOURLY ROUNDS MAINTAINED. PT WILL USE CALL LIGHT FOR ASSISTANCE. CALL LIGHT WITHIN REACH. NURSING TO CONTINUE TO MONIOR.
[2018-03-09 21:00] VITALS: BP 115/52
[2018-03-10 00:45] VITALS: BP 105/47
[2018-03-10 04:39] VITALS: BP 111/53
[2018-03-10 05:43] LABS: ALBUMIN 1.6 g/dL (3.4-5.0); CALCIUM 7.7 mg/dL (8.5-10.1); CREATININE 0.5 mg/dL (0.6-1.3); POTASSIUM 3.6 mmol/L (3.5-5.1); TOTAL BILIRUBIN 0.7 mg/dL (<0.1-1.0); TOTAL PROTEIN 4.7 g/dL (6.4-8.2)
--- NOTE | 2018-03-10 07:34 | NUR ---
PATIENT ALERT AND ORIENTED X 4. VITALS STABLE. AFEBRILE. PAIN CONTROLLED WITH PO MEDICATION. TOLERATED CPM WELL AT HS. REPOSITIONED DURING THE NIGHT. WOUND VAC IN PLACE. COMPLAINTS OF NAUSEA, ZOFRAN GIVEN X 1. CONTINUED CONTACT ISOLATION. TIWARI TO DEPENDENT DRAINAGE, URINE DARK PHILIPP. FLUIDS ENCOURAGED. HOURLY ROUNDS. NURSING WILL CONTINUE TO MONITOR.
[2018-03-10 08:43] LABS: ABSOLUTE BASOPHILS 0.1 thou/uL (0.0-0.2); ABSOLUTE EOSINOPHILS 0.2 thou/uL (0.0-0.7); ABSOLUTE LYMPHOCYTES 1.6 thou/uL (0.8-5.3); ABSOLUTE MONOCYTES 0.7 thou/uL (0.0-1.2); ABSOLUTE NEUTROPHILS 6.5 thou/uL (1.6-8.1); BASOPHILS 0.7 %; EOSINOPHILS 1.7 %; HEMATOCRIT 25.2 % (37.0-47.0); HEMOGLOBIN 8.6 gm/dL (12.0-15.0); LYMPHOCYTES 17.5 %; MCH 29.9 pg (26.0-34.0); MCHC 34.1 g/dL (28.0-37.0); MCV 87.7 fL (80.0-100.0); MONOCYTES 7.9 %; MPV 7.2 fl. (7.2-11.1); NUCLEATED RBCS 0 /100WBC; POLYS 72.2 %; RBC 2.87 mil/uL (4.20-5.00); RDW-CV 13.7 % (10.5-14.5)
[2018-03-10 08:54] LABS: PLATELET COUNT* 334 thou/uL (150-400)
--- NOTE | 2018-03-10 12:06 | NUR ---
VISITED WITH PT. SHE WAS EATING LUNCH. DISCUSSED THAT REHAB UNIT EVAL WAS IN PROGRESS. TOLD HER IF UNABLE TO GO TO REHAB OR INSURANCE DENIES, SHE WILL NEED TO GO TO SNF. SHE WANTED HER DAUGHTER TO BE IN ON THE CONVERSATION. CM WILL GO BACK AFTER LUNCH AND SHE WILL GET DAUGHTER ON SPEAKER PHONE TO TALK.
[2018-03-10 12:46] VITALS: BP 129/58
--- NOTE | 2018-03-10 14:30 | NUR ---
WENT TO SEE PT. SHE WAS IN HER CPM. HAD JUST LEFT. SHE SAID HE WAS GOING TO TOUR SNFS. SHE ASKED THAT I CALL HIM INSTEAD OF HER DAUGHTER. CM SPOKE WITH ON CELL. HE WAS GOING TO SESSER TO TOUR. HE SAID SOME THINKS SHE SHOULD STAY AT [facility] FOR REHAB. I DON'T KNOW WHY SHE SHOULD STAY THERE. TOLD HIM IF HE DID NOT WANT STAYING THERE FOR REHAB IT WAS TOTALLY UP TO THEM. TOLD HIM I DID NOT KNOW IF INSURANCE WOULD AUTH HER TO GO TO REHAB BUT WE WOULD KNOW TOMORROW,MOST LIKELY, AND NEEDED A SNF TO MAKE REFERRAL TO IF THEY DENY. HE UNDERSTOOD.
--- NOTE | 2018-03-10 15:02 | NUR ---
INPATIENT REHAB CONSULTATION RECEIVED AND DR. SCOTT ASSESSED PATIENT THIS DATE. PATIENT WOULD BENEFIT FROM AN ACUTE INPATIENT REHAB UNIT STAY FOR MEDICAL MANAGEMENT AND INTENSIVE REHAB THERAPIES IN ORDER TO PROGRESS TOWARD PRIOR LEVEL OF FUNCTION AND REDUCE BURDEN OF CARE. SEE DR. SCOTT'S CONSULT FOR DETAILS. MACHINE INKER PHONES JOHN THORPE, AT [phone] TO INITIATE REQUEST FOR AUTHORIZATION OF ACUTE INPATIENT REHAB UNIT STAY. WILL AWAIT RETURN PHONE CALL AND DETERMINATION FROM ILA. THANK YOU FOR THIS REFERRAL.
[2018-03-10 15:52] VITALS: BP 129/58
[2018-03-10 16:00] VITALS: BP 147/72
--- NOTE | 2018-03-10 16:18 | IN ---
[facility] [address] [place] [address] INTERIM NOTE Name: BOZENA DORSEY Room: [address] IN .R.#: [id number] Admission: 03/02/18 Attend Phys: Celia Ahmadi Discharge: Date of : 47 Report #: [id number] CC: Wali Mayo The patient was seen today on 03/09/2018 at 0700 hours. The patient was examined, chart and x-rays were reviewed. The patient is doing well from the standpoint of her postoperative pain, her current clinical condition. She has expected postoperative swelling. Dopplers were negative for DVTs. She is trying to move about in bed as much as possible. She is developing some pressure ulcers due to her current situation being stuck in bed and having the postoperative periprosthetic type fracture, midshaft femur fracture. She is being moved as much as she can and she is able to move herself somewhat, although with pain. I have asked that we evaluate the type of bed that she is in, perhaps see if there is one that might be better suited for her at this stage and they are looking into a low pressure bed that they utilize for people with pressure ulcer problems. Currently, she does not have any skin breakdown, but does have swelling and discomfort to the sacral region. She is able to move her feet well. Her neurovascular exam appears to be intact. Her knee incision is healing well. There is no evidence of significant drainage to any of her surgical dressings. They are not changed today. I have discussed with her in detail her current situation and the healing process that we will need to be aware of. She is obviously disappointed that it will be quite sometime before she is allowed to weightbear and this will be dependent upon her healing progress. I will also look into the possibility of getting a bone stimulator ordered. Due to the severity of the fracture, we may be able to get this approved at a sooner pace than the 3 months Medicare usually allows and once again I will check on this. We will continue to monitor her. I will not be at the [facility] tomorrow, so I will see that she is evaluated by residents and reported to me as well as an attending physician. I am always available, however, by phone and she knows this. <ELECTRONICALLY SIGNED> By: Wali Coombs DO 03/10/18 1618 0935 [id number] Coombs DO /nt
[2018-03-10 20:15] VITALS: BP 137/51
--- NOTE | 2018-03-10 20:29 | NUR ---
PT ALERT AND ORIENTED X 4. PT GIVEN IV ZOFRAN FOR NAUSEA AND PO OXY IR FOR PAIN CONTROL. TIWARI IN PLACE. OXYGEN IN USE 2L/NC. PARTICIPATED IN THERAPIES. PICC LINE IN UPPER RIGHT ARM AND IV IN LEFT ARM REMOVED. VS STABLE. MEPILEX DRESSING ON LEFT LEG DRY AND INTACT. WOUND VAC IN PLACE. HOURLY ROUNDS MAINTAINED. CALL LIGHT WITHIN REACH. WILL USE CALL LIGHT FOR ASSISTANCE. NURSING TO CONTINUE TO MONITOR.
[2018-03-11 04:00] VITALS: BP 122/57
--- NOTE | 2018-03-11 05:01 | NUR ---
PT SLEPT ON AND OFF THIS SHIFT. ASSESSMENT DOCUMENTED. MEDS GIVEN PER E-MAR. PAIN AND NAUSEA MEDICATION GIVEN PER PT REQUEST. PT REPOSTITIONED PATIENT ALLOWED. DRESSINGS C/D/I. PT ON CPM THIS AM, WILL REMOVE AFTER PT HAS BEEN ON FOR ONE HOUR. WILL CONTINUE WITH PLAN OF CARE.
[2018-03-11 08:00] VITALS: BP 150/61
--- NOTE | 2018-03-11 16:04 | NUR ---
5 NUNDA DIRECTOR OF INFECTION PREVENTION RECEIVES PHONE CALL FROM [facility] STROKE COORDINATOR, JOHN. JOHN STATES THAT THE ELECTRICAL POWER ENGINEER DENIED ACUTE INPATIENT REHAB UNIT STAY FOR THIS PATIENT REMARKING THE PATIENT IS NWB, HAS LIMITED PHYSICAL ASSISTANCE AT HOME AND RECOMMENDS SNF LEVEL OF CARE UPON DISCHARGE. REFERENCE #[id number]. [id number] REVIEW IS AN OPTION SHOULD PHYSICIAN CHOOSE; MUST BE COMPLETED BY NOON TOMORROW BY PHONING [phone]. INFORMATION PROVIDED TO DOUGLAS PORTER IN CASE MANAGEMENT. THANK YOU FOR THIS REFERRAL.
--- NOTE | 2018-03-11 16:30 | NUR ---
INSURANCE DENIED ACUTE INPT.REHAB. INFORMED PT. CM HAD MADE REFERRAL TO [facility] TODAY, PT.STATED AND DAUGHTER TOURED THERE AND FEEL IT IS NICE. [facility] SAID THEY CAN ACCEPT PT.TO A SKILLED BED PENDING INSURANCE AUTH. CM WILL CALL [facility] IN AM. [facility] TO ORDER CPM AND LOW AIR LOSS MATTRESS.
[2018-03-11 16:54] VITALS: BP 147/76
--- NOTE | 2018-03-11 18:20 | NUR ---
PT ALERT AND ORIENTED X 4. ADMINISTERED IV ZOFRAN FOR NAUSEA AND PO MEDICATIONS FOR PAIN. IV PATENT. DRESSINGS C/D/I. BARRIER CREAM APPLIED TO COCCYX/SACRAL AREA. CPM IN USE X 2 DURING SHIFT. PARTICIPATED WITH THERAPIES. MARIA ELENAAT TYLER HOSE ON. POLAR PACK IN PLACE. HOURLY ROUNDS MAINTAINED. WILL USE CALL LIGHT FOR ASSISTANCE. CALL LIGHT WITHIN REACH. NURSING TO CONTINUE TO MONITOR.
[2018-03-12] VITALS: BP 116/62
--- NOTE | 2018-03-12 04:56 | NUR ---
PATIENT HAS SLEPT WELL MOST OF THE NIGHT. VSS ON RA. PAIN CONTROLLED WITH ORAL PAIN MEDICATIONS AND CHARTED. PATIENT HAS REMAINED NWB ON LEFT EXTREMITY. DRESSING TO LEFT LEG IS C/D/I, ICE PACK AND SCD'S IN PLACE. WOUND VAC IN PLACE WITH MINIMAL DRAINAGE NOTED. PATIENT HAS NOT REQUESTED TO USE CPM DURING SHIFT. TIWARI TO DEPENDENT DRAINAGE WITH PHILIPP COLORED URINE OUTPUT. PATIENT REMAINS ON CONTACT ISOLATION D/T POSITIVE MRSA OF THE NARES. IV IN RIGHT FOREARM-SL. PATIENT ON LOW AIR LOSS MATTRESS AND TURNED EVERY 2 HRS AND PRN. PATIENT INSTRUCTED TO USE CALL LIGHT WHEN NEEDING ASSISTANCE. HOURLY ROUNDS MADE. WILL CONTINUE WITH PLAN OF CARE AND NURSING TO MONITOR.
[2018-03-12 09:20] VITALS: BP 176/77
--- NOTE | 2018-03-12 09:41 | NUR ---
MERCHANDISING CONSULTANT SPOKE TO CAMERON WITH [facility] AND SHE INFORMS THAT THE FACILITY HAS RECIEVED INSURANCE AUTH, ARE ABLE TO ACCEPT THE PATIENT TODAY, AND WILL PROVIDE TRANSPORT AT 1300. D/C [facility] D/C [facility] SPOKE TO THE PATIENT AND DTR TO INFORM OF THIS INFO. PATIENT AND DTR IN AGREEMENT. SPOKE TO THE RN IN-CHARGE OF THE PATIENT TO INFORM OF [facility] ACCEPTANCE, TIME OF TRANSPORT, AND WHERE TO CALL REPORT. RN IN AGREEMENT. CM WILL REMAIN AVAILABLE TO ASSIST AND FOLLOW NEEDED.
[2018-03-12 10:17] VITALS: BP 176/77
[2018-03-12] MEDS ORDERED: COZAAR 25 MG TA25 M2 PO (10:37)
[2018-03-12] MEDS ORDERED: NORCO 5-325 TA1 EACH PO (10:40)
[2018-03-12] MEDS ORDERED: LOPRESSOR25 PO (10:42)
[2018-03-12] MEDS ORDERED: ENOXAPARIN30 MG/0.1 SUBQ (10:44)
[2018-03-12] MEDS ORDERED: NEURONTIN600 MG PO (10:46)
[2018-03-12] MEDS ORDERED: OXYCODONE HCL 55 MG PO (10:50)
[2018-03-12] MEDS ORDERED: ONDANSETRON HCL4 M2 PO (10:53)
[2018-03-12] MEDS ORDERED: ELIQUIS2.5 MG PO (12:44)
--- NOTE | 2018-03-12 12:48 | NUR ---
DR GLOVER ON UNIT TO REMOVE WOUND VAC. DR GLOVER GAVE VERBAL ORDER FOR MORNING LOVENOX DOSE TO BE GIVEN AND THEN TO HAVE ORDER CHANGED TO ELIQUIS 2.5 MG BID AFTER THAT. LOVENOX DOSE DISCONTINUED AND WILL HAVE DR GLOVER WRITE RX FOR ELIQUIS FOR PT TO TRANSFER TO FACILITY.
--- NOTE | 2018-03-12 13:38 | NUR ---
ASSUMED CARE OF PATIENT AFTER MORNING REPORT AT APPROX 0720. ALERT AND ORIENTED X4. ASSESSMENT COMPLETED AND CHARTED. VSS ON ROOM AIR. NO COMPLAINTS OF SOA. NAUSEA AND PAIN HAVE BEEN MANAGED WITH MEDICATIONS. PATIENT WORKING WELL WITH THERAPIES TODAY BUT VERY TIRED AFTER EXERTION. PATIENT TRANFERRED TO WHEELCHAIR BY TWO MALE NURSING STAFF MEMBERS PER HUSBANDS REQUEST, TRANSFER WENT WELL. PATIENT DISCHARGED TO SKILLED FACILITY AT 1335. ALL PERSONAL BELONGINGS, PRESCRIPTIONS AND DISCHARGE PACKET SENT WITH PATIENT, FAMILY AND TRANSPORTER UPON DISCHARGE.
--- NOTE | 2018-03-16 10:19 | CON ---
[address] [address] CONSULTATION Name: BOZENA DORSEY Room: [address] IN M.R.#: [id number] Admission: 03/02/18 Attend Phys: Celia Ahmadi Discharge: 03/12/18 Date of : 47 Report #: [id number] THIS REPORT FOR: //name// CC: Wali Mayo REASON FOR CONSULTATION: Evaluation and recommendations regarding post-acute rehabilitation with this 72-year-old female status post left total knee arthroplasty on 03/02/2018, who has been in the postoperative period and did stand up to go to the bathroom, fell to slipping of the bar from her left hand and a buckling pop of the knee. She was diagnosed with a left femur fracture and is now post ORIF on the left. She is now nonweightbearing on the left lower extremity. She is minimum to moderate assistance at this time and dependent for bilateral lower extremity dressing. She is participating in physical and occupational therapy. She also has a history of neuropathy, is MRSA positive, had some postop fevers, which are stable; anemia due to acute blood loss; sacral contusion, which Ortho is aware of. She is medically stable and now ready for acute rehabilitation and likely at a wheelchair level with slide boards and potentially to the transfers and short household distances if able to maintain a left lower extremity nonweightbearing status. MEDICATIONS: Reviewed and reconciled by myself and are available in the MAR. ALLERGIES: SHE DOES HAVE ALLERGY TO CODEINE, SULFA AND PENICILLINS. Laboratories have been reviewed. Diagnostic imaging has also been reviewed. PAST MEDICAL AND SURGICAL HISTORY: Right total knee arthroplasty, transverse myelitis, neurotransmitter, right total hip arthroplasty, hypertension, neuropathy, GERD, total nasal reconstruction. FAMILY HISTORY: Heart disease. SOCIAL HISTORY: No tobacco, alcohol or illicit drug use. REVIEW OF SYSTEMS: A 14-point review of systems is done and is negative except as mentioned in HPI, specifically no fever, chest pain, shortness of breath, abdominal pain or distention. PHYSICAL EXAMINATION: GENERAL: Alert, oriented, in no apparent distress. VITAL SIGNS: Reviewed and are stable. HEENT: Head is atraumatic, normocephalic. Pupils equal, round, reactive. ABDOMEN: Soft, nontender, nondistended. NEUROLOGIC: Cranial nerves 2-12 are grossly intact with [place] [address] CONSULTATION Name: BOZENA DORSEY Room: [address] IN [facility]#: [id number] Admission: 03/02/18 Attend Phys: Celia Ahmadi Discharge: 03/12/18 Date of : 47 Report #: [id number] ASSESSMENT: 1. Status post left total knee arthroplasty due to degenerative joint disease. 2. Status post left open reduction internal fixation due to femur fracture. 3. Neuropathy. 4. Methicillin-resistant Staphylococcus aureus positive. 5. History of transverse myelitis. 6. Hypertension. 7. Gastroesophageal reflux disease. PLAN: 1. Recommend continued physical and occupational therapy with nonweightbearing goal would likely be primarily in the wheelchair level with slide board transfers and short distance ambulation in the household if able to maintain nonweightbearing on the left lower extremity. 2. If medically stable, would recommend acute inpatient rehabilitation to facilitate safe discharge home if she does have an accessible house. She also lives with spouse. We will follow during the acute medical stay and will follow up regularly. <ELECTRONICALLY SIGNED> By: Anamaria Camacho DO 03/16/18 1019 [id number] [id number] Camacho DO /nt
== END 2018-03-12 13:35 | DRG 469 ==
LOC: M.SUR 07:11 → M.TBA 10:27 → M.ORTHSURG 10:27 → M.SUR 15:15 → M.ORTHSURG 15:48 → M.ICU 03-05 14:00 → M.ORTHSURG 03-06 18:41
PROVIDERS: Internal Medicine; Orthopaedic Surgery; Specialist; ADMIT Internal Medicine
PROC: 0SRD0J9 Replacement of Left Knee Joint with Synthetic Substitute, Cemented, Open Approach (ICD-10-PCS; principal; 2018-03-02)
PROC: 30233N1 Transfusion of Nonautologous Red Blood Cells into Peripheral Vein, Percutaneous Approach (ICD-10-PCS; 2018-03-05)
PROC: 0QS804Z Reposition Right Femoral Shaft with Internal Fixation Device, Open Approach (ICD-10-PCS; 2018-03-05)
DX: M17.12 Unilateral primary osteoarthritis, left knee (principal); J18.9 Pneumonia, unspecified organism; S72.332A Displaced oblique fracture of shaft of left femur, initial encounter for closed fracture; A41.9 Sepsis, unspecified organism; D62 Acute posthemorrhagic anemia; M97.02XA Periprosthetic fracture around internal prosthetic left hip joint, initial encounter; M21.062 Valgus deformity, not elsewhere classified, left knee; G62.9 Polyneuropathy, unspecified; I10 Essential (primary) hypertension; B95.62 Methicillin resistant Staphylococcus aureus infection as the cause of diseases classified elsewhere; K21.9 Gastro-esophageal reflux disease without esophagitis; Z96.641 Presence of right artificial hip joint; S30.0XXA Contusion of lower back and pelvis, initial encounter; W01.0XXA Fall on same level from slipping, tripping and stumbling without subsequent striking against object, initial encounter; M62.838 Other muscle spasm; M25.572 Pain in left ankle and joints of left foot; Y93.89 Activity, other specified; Y92.89 Other specified places as the place of occurrence of the external cause; Y99.8 Other external cause status; Z88.0 Allergy status to penicillin; Z88.2 Allergy status to sulfonamides; Z88.5 Allergy status to narcotic agent

== ENCOUNTER → 2018-04-15 | Outpatient (CLI) | payer OTHER ==
[~2018-04-15] MED LIST changes: +COZAAR 25 MG TA25 M2 PO; +ENOXAPARIN30 MG/0.1 SUBQ; +LEVSIN0.125 MG PO; +LOPRESSOR25 PO; +NEURONTIN600 MG PO; +NORCO 5-325 TA1 EACH PO; +ONDANSETRON HCL4 M2 PO; +PHENAZOPYRIDIN200 M2 PO
== END ==
LOC: M.WC 10:30
DX: T81.89XD Other complications of procedures, not elsewhere classified, subsequent encounter (principal); L97.822 Non-pressure chronic ulcer of other part of left lower leg with fat layer exposed; G62.9 Polyneuropathy, unspecified; I10 Essential (primary) hypertension; K21.9 Gastro-esophageal reflux disease without esophagitis; Z96.659 Presence of unspecified artificial knee joint; Z96.649 Presence of unspecified artificial hip joint; Y83.8 Other surgical procedures as the cause of abnormal reaction of the patient, or of later complication, without mention of misadventure at the time of the procedure

== ENCOUNTER → 2018-06-22 | Outpatient (CLI) | payer OTHER | LOC: M.RAD 08:47 | DX: Z79.890 Hormone replacement therapy (principal); Z78.0 Asymptomatic menopausal state; T14.8XXA Other injury of unspecified body region, initial encounter; X58.XXXA Exposure to other specified factors, initial encounter; Y93.89 Activity, other specified; Y92.89 Other specified places as the place of occurrence of the external cause; Y99.8 Other external cause status ==

== ENCOUNTER → 2018-08-07 | Outpatient (CLI) | payer OTHER ==
[2018-08-07 10:07] LABS: ABSOLUTE BASOPHILS 0.1 thou/uL (0.0-0.2); ABSOLUTE EOSINOPHILS 0.1 thou/uL (0.0-0.7); ABSOLUTE LYMPHOCYTES 2.4 thou/uL (0.8-5.3); ABSOLUTE MONOCYTES 0.4 thou/uL (0.0-1.2); ABSOLUTE NEUTROPHILS 3.7 thou/uL (1.6-8.1); BASOPHILS 1.2 %; EOSINOPHILS 1.7 %; HEMATOCRIT 40.6 % (37.0-47.0); HEMOGLOBIN 13.7 gm/dL (12.0-15.0); LYMPHOCYTES 35.4 %; MCH 28.4 pg (26.0-34.0); MCHC 33.6 g/dL (28.0-37.0); MCV 84.4 fL (80.0-100.0); MONOCYTES 6.6 %; MPV 7.3 fl. (7.2-11.1); NUCLEATED RBCS 0 /100WBC; PLATELET COUNT* 347 thou/uL (150-400); POLYS 55.1 %; RBC 4.81 mil/uL (4.20-5.00); RDW-CV 15.7 % (10.5-14.5); WBC 6.7 thou/uL (4.0-11.0)
[2018-08-07 10:20] LABS: ALBUMIN 3.6 g/dL (3.4-5.0); CALCIUM 9.3 mg/dL (8.5-10.1); POTASSIUM 3.6 mmol/L (3.5-5.1); TOTAL BILIRUBIN 0.3 mg/dL (<0.1-1.0); TOTAL PROTEIN 7.9 g/dL (6.4-8.2)
[2018-08-07 10:21] LABS: CALCIUM 9.4 mg/dL (8.5-10.1); CREATININE 0.9 mg/dL (0.6-1.3)
[2018-08-07 11:16] LABS: ESR (SEDRATE) 20 mm/hr (0-30)
== END ==
LOC: M.LAB 09:42
PROVIDERS: Orthopaedic Surgery
DX: S72.141A Displaced intertrochanteric fracture of right femur, initial encounter for closed fracture (principal); X58.XXXA Exposure to other specified factors, initial encounter; Y93.89 Activity, other specified; Y92.89 Other specified places as the place of occurrence of the external cause; Y99.8 Other external cause status